=== PATIENT | male | born 1985 | race Hispanic/Latino ===

== ENCOUNTER 2022-01-05 12:30 | Emergency (ER) | payer OTHER ==
[~2022-01-05] VITALS: Ht 167.6 cm; Wt 72.6 kg
[2022-01-05] MEDS ORDERED: OMEPRAZOLE20 MG PO (16:31)
[2022-01-05] MEDS ORDERED: AMOXICILLIN500 MG PO (18:32)
[2022-01-05] MEDS ORDERED: HYDROCODON-ACE1 EA10 PO (18:32)
--- OUTSIDE RECORDS SUMMARY | 2022-01-05 19:10 | XMS ---
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 E.Ismael. VISIT COUNT (12 MO.) [address] TOTAL 10 NOTE: Visits indicate total known visits. ED/UCC VISIT TRACKING (12 MO.) 01/05/2022 12:31 CATR[facility] Stevenson TYPE: Emergency COMPLAINT: - HEADACHE, WEAKNESS 12/30/2021 18:38 [facility] [place] TYPE: Emergency DIAGNOSES: - Epistaxis - Alcohol use, unspecified with intoxication, uncomplicated - vomiting blood headache 11/24/2021 11:01 Mayra TEIXEIRA TYPE: Emergency COMPLAINT: - Abdominal pain_WEAKNESS - EPIGASTRIC PAIN - OTHER CHEST PAIN DIAGNOSES: 0. Epigastric pain 1. Gastro-esophageal reflux disease without esophagitis 4. Cannabis use, unspecified, uncomplicated 5. Other stimulant abuse, uncomplicated 6. Cocaine abuse, uncomplicated 7. Alcohol abuse with intoxication, unspecified 8. Personal history of nicotine dependence 9. Other metal bumper (current) drug therapy 11/13/2021 18:20 [facility] [place] TYPE: Emergency DIAGNOSES: - Adjustment disorder, unspecified - Alcohol abuse, uncomplicated - Other stimulant abuse, uncomplicated - ALTERED MENTAL STATUS 10/31/2021 05:41 [facility] [place] TYPE: Emergency DIAGNOSES: - Nasal congestion - CHEST PAIN TROUBLE BREATHING WEAKNESS - Other stimulant abuse, uncomplicated - Alcohol abuse, uncomplicated 10/16/2021 22:53 [facility] [place] TYPE: Emergency DIAGNOSES: - Nasal congestion - weakness - Alcohol abuse, uncomplicated 08/29/2021 12:10 [facility] [place] TYPE: Emergency DIAGNOSES: - ABD PAIN VOMITING LOSS OF TASTE CHILLS + SCREENING - Alcohol dependence with withdrawal, uncomplicated 07/21/2021 08:06 [facility] [place] TYPE: Emergency DIAGNOSES: - Alcohol abuse, uncomplicated - HEADACHE, WEAKNESS 06/16/2021 19:49 [facility] [place] TYPE: Emergency DIAGNOSES: - FATIGUE - Contact with and (suspected) exposure to covid-19 04/28/2021 04:57 [facility] [place] [facility] DIAGNOSES: - Gastritis, unspecified, without bleeding - Other problems related to lifestyle - ANXIETY/DEPRESSION INPATIENT VISIT TRACKING (12 MO.) No inpatient visits to display in this time frame [email or web address]
== END 2022-01-05 18:46 | disposition home or self-care (01) ==
LOC: ED 12:30
DX: J06.9 Acute upper respiratory infection, unspecified (principal); R04.0 Epistaxis; R51.9 Headache, unspecified; H66.91 Otitis media, unspecified, right ear; Z20.822 Contact with and (suspected) exposure to COVID-19
CPT/HCPCS: 36415; 80053; 85025; 87502; C9803; J1885; J2405; J7030; U0003